=== PATIENT | female | born 1940 | race Caucasian/White ===

== ENCOUNTER 2019-09-25 11:04 | Inpatient (IN) | payer OTHER, MEDICAID ==
[~2019-09-25] VITALS: Ht 154.9 cm; Wt 89.8 kg
[2019-09-25 11:06] VITALS: BP_SYST 152
--- NOTE | 2019-09-25 11:17 | NUR ---
Patient to ER bed 06 to gown for evaluation. Side rails up.
[2019-09-25] MEDS ORDERED: NACL 0.9% 1,000 ML IV ONE (11:18)
--- NOTE | 2019-09-25 11:18 | NUR ---
Pt brought by ambulance, A&Ox2, pt presents to ER with weakness, N/V since today , pt hx of diabetes, skin pink and warm, afebrile , pt obedient to commands, no active vomiting noted now, cap refill <3, VSS.
--- NOTE | 2019-09-25 11:25 | NUR ---
Dr Callejas at bedside examining patient
[2019-09-25] MEDS ORDERED: cefTRIAXone 1 GM IVPB PREMIX 50 ML IV ONE (11:30)
[2019-09-25] MEDS ORDERED: NS 1000 ML IV.SOLN IV ONE (11:30)
[2019-09-25] MEDS ORDERED: ONDANSETRON HCL 4 MG/2 ML VIAL IVP ONE (11:30)
--- NOTE | 2019-09-25 11:49 | NUR ---
Pt pff the unit for CT
[2019-09-25 12:49] LABS: HEMATOCRIT 32.2 % (36-48); HEMOGLOBIN 10.3 g/dL (12.0-16.0); LYMPHOCYTES # (AUTO) 0.9 K/uL (1.0-5.5); LYMPHOCYTES % (AUTO) 6.8 % (20.5-51.5); MEAN CORPUSCULAR HEMOGLOBIN 30 pg (27-31); MEAN CORPUSCULAR HGB CONC 32 % (32-36); MEAN CORPUSCULAR VOLUME 94 fL (79.0-98.0); MONOCYTES # (AUTO) 0.2 K/uL (0.0-1.0); MONOCYTES % (AUTO) 1.6 % (1.7-9.3); NEUTROPHILS # (AUTO) 11.5 K/uL (1.8-7.7); NEUTROPHILS % (AUTO) 91.6 % (40.0-70.0); PLATELET COUNT (AUTO) 225 K/uL (130-430); RED BLOOD CELL COUNT(AUTO) 3.42 MIL/uL (4.2-6.2); RED CELL DISTRIBUTION WIDTH 22.4 % (9.0-15.0); WHITE BLOOD COUNT (AUTO) 12.6 K/uL (4.8-10.8)
[2019-09-25 12:56] LABS: PROTHROMBIN TIME 10.2 SECS (9.5-12.5)
[2019-09-25 12:57] LABS: ANION GAP 11 (5-15); CALCIUM 8.6 mg/dL (8.4-11.0); CHLORIDE 97 mmol/L (98-107); CREATININE 0.99 mg/dL (0.55-1.30); GLUCOSE 207 mg/dL (70-99); SODIUM SERUM 137 mmol/L (136-145); UREA NITROGEN, BLOOD 16 mg/dL (8-21)
[2019-09-25 13:03] LABS: ALANINE AMINOTRANSFERASE 20 U/L (12-78); ALBUMIN 3.9 g/dL (3.4-4.8); AMYLASE 37 U/L (0-100); ASPARTATE AMINOTRANSFERASE 18 U/L (10-37); LIPASE 67 U/L (73-393); TOTAL BILIRUBIN 0.4 mg/dL (0.0-1.0)
[2019-09-25 13:12] LABS: ALCOHOL, BLOOD < 3 mg/dL (<10)
[2019-09-25 13:35] LABS: CREATINE KINASE MB 8.5 ng/mL (0-3.6)
[2019-09-25] MEDS ORDERED: DOCU-144 PO (14:46)
[2019-09-25] MEDS ORDERED: MIRA25TA PO (14:46)
[2019-09-25] MEDS ORDERED: TRAM-350 PO (14:46)
[2019-09-25] MEDS ORDERED: OMEG-158 PO (14:46)
[2019-09-25] MEDS ORDERED: ASPI-1153 PO (14:46)
[2019-09-25] MEDS ORDERED: GLU850 PO ×2 (14:46)
[2019-09-25] MEDS ORDERED: SITA100T11 PO (14:46)
[2019-09-25] MEDS ORDERED: CHOL100053 PO (14:46)
[2019-09-25] MEDS ORDERED: GABA-531 PO (14:46)
[2019-09-25] MEDS ORDERED: LIP40 PO (14:46)
[2019-09-25] MEDS ORDERED: ALEN10TA7 PO (14:46)
--- NOTE | 2019-09-25 14:46 | NUR ---
Medication reconciliation completed with information provided by facility. Any prior medication reconciliation on file was reviewed and corrected.
--- NOTE | 2019-09-25 15:08 | NUR ---
Patient will be admitted to care of DR. VIEIRA. Admitted to [facility] unit. Will go to room 114B. Belongings list completed. Complete and up to date summary report printed. SBAR report to be given at bedside with opportunity for questions.
[2019-09-25 15:23] LABS: BARBITURATE, URINE NEGATIVE (NEG <=200); BENZODIAZEPINE, URINE NEGATIVE (NEG <=150); CANNABINOID, URINE NEGATIVE (NEG <=50); COCAINE, URINE NEGATIVE (NEG <=150); METHAMPHETAMINES SCREEN,URINE NEGATIVE (NEG <=500); OPIATE, URINE NEGATIVE (NEG <=100); PHENCYCLIDINE SCREEN,URINE NEGATIVE (NEG <=25); UR TRICYCLIC ANTIDEPRESSANTS NEGATIVE (NEG <=300); URINE AMPHETAMINE NEGATIVE (NEG <=500); URINE METHADONE NEGATIVE (NEG <=200); URINE OXYCODONE SCREEN NEGATIVE (NEG <=100); URINE PROPOXYPHENE SCREEN NEGATIVE (NEG <=300)
--- NOTE | 2019-09-25 15:28 | NUR ---
Admission Note Received patient from ER with diagnosis of Gastroenteritis. Oriented to room, call light, pain management and safety-side rails up x3, bed alarm on, call light within reach.
[2019-09-25 15:35] VITALS: BP_SYST 150
[2019-09-25 15:48] LABS: BILIRUBIN,URINE NEGATIVE (NEGATIVE); BLOOD, URINE 3+ (NEGATIVE); CLARITY/URINE CLEAR (CLEAR); COLOR,URINE YELLOW (YELLOW); GLUCOSE,URINE NEGATIVE (NEGATIVE); KETONES,URINE NEGATIVE (NEGATIVE); LEUKOCYTE ESTERASE ,URINE NEGATIVE (NEGATIVE); NITRITE, URINE POSITIVE (NEGATIVE); PH,URINE 6.5 (5.0-8.0); PROTEIN URINE NEGATIVE (NEGATIVE); UROBILINOGEN,URINE 0.2 (0.2-1.0)
[2019-09-25] MEDS ORDERED: ONDANSETRON HCL 4 MG/2 ML VIAL IVP PRN (17:00)
[2019-09-25 17:10] LABS: BACTERIA,URINE MODERATE /HPF (None Seen); RBC,URINE 20-50 /HPF (0-3); WBC,URINE 0-3 /HPF (0-3)
--- NOTE | 2019-09-25 17:19 | NUR ---
NAUSEA Pt c/o feeling like she is going to throw up-pt given Zofran as ordered. HOB elevated, emesis bucket provided, light turned down low to promote rest.
--- NOTE | 2019-09-25 17:23 | NUR ---
GI consult called: for Dr. Marichuy Singh , regarding gastritis, ordered by Dr. Calvillo, spoke with Aline.
[2019-09-25] MEDS: D5/0.45 NS 1,000 ML IV SCH (18:08)
--- NOTE | 2019-09-25 18:33 | NUR ---
CLOSING NOTE Pt resting quietly in bed with no s/s resp distress, no c/o pain or discomfort. No further c/o nausea, no vomiting. No IVF infusing well to LAC at ordered rate with no s/s infiltration to site. Side rails up x3, bed alarm on, room close to nursing station for safety. Call light within reach.
--- NOTE | 2019-09-25 19:30 | NUR ---
Pt is awake and oriented to her name only. Pt already removed her IV Angiocath intact, which was found lying on the floor. Pt is lying upside down in bed. Pt was moved from room 114B to room 104A to be closer to Nurses' Station for closer monitoring. Call light is with pt and bed alarm is on.
[2019-09-25 20:00] VITALS: BP_SYST 149
--- NOTE | 2019-09-25 21:00 | NUR ---
Pt is resting in bed and denies pain or discomfort. Fall and safety precautions are in place. Pt is refusing IV restart at this time. Will attempt again later.
--- NOTE | 2019-09-25 22:30 | NUR ---
IV was restarted in pt's RFA with Angiocath 22G after three attempts. IVF was resumed as ordered by MD. Call light is with pt and bed alarm is on.
[2019-09-26 00:04] VITALS: BP_SYST 148
--- NOTE | 2019-09-26 00:30 | NUR ---
Pt is sleeping without any distress noted. IVF is infusing well in RFA. Fall and safety precautions are in place.
--- NOTE | 2019-09-26 02:10 | NUR ---
Photo of nasal wound taken and placed in pt's chart.
[2019-09-26] MEDS: D5/0.45 NS 1,000 ML IV SCH ×3 (02:55→22:55)
--- NOTE | 2019-09-26 04:30 | NUR ---
Pt is sleeping comfortably in bed. IVF is infusing well in RFA. Fall and safety precautions are in place.
--- NOTE | 2019-09-26 06:26 | NUR ---
Pt is awake and resting comfortably in bed. IVF is infusing well in RFA. Fall and safety precautions are in place. Will endorse to day shift nurse.
[2019-09-26 08:00] VITALS: BP_SYST 135
--- NOTE | 2019-09-26 09:37 | NUR ---
Nutrition Update Samy Scale 14 noted. Pt admitted for gastroenteritis, dehydration, recent nasal Sx. Diet: clear liquid (2/3 Dinner) + NPO (2/4 Breakfast) -- 2 active, separate diet orders BMI: 37.4 kg/m2 RD to follow per nutrition care standards.
--- NOTE | 2019-09-26 10:51 | NUR ---
WOUND EVALUATION: Wound Consult received from Dr. Calvillo. Thank you, Dr. Calvillo, for the consult. Patient received in a Deshawn Bed with a mattress, awake, alert, and oriented. Patient is unable to turn independently. Samy Score is a 14. Past Medical History: CVA, atrophy, muscle wasting, Hypertension, Diabetes Mellitus, Osteoarthritis, Psychosis. Recent Labs: WBC 12.6, RBC 3.42, hemoglobin 10.3, hematocrit 32.2, chloride 97, glucose 207, total creatine kinase 210, PTT 25.2. Microbiology: Blood culture results 2 in progress. MRSA screen results in progress. Intrinsic factors that delay wound healing: Diabetes Mellitus. Extrinsic factors that delay wound healing: Decreased mobility. Wound Assessment: 1. Anterior Bridge of Nose: Surgical wound from skin cancer removal, present on admission. Wound bed has 100% black scab. No odor, no drainage. Cari-wound intact. Sutures present. Measures 1.3 cm x 1.7 cm. Recommend: Apply SurePrep to cari-wound. Cover with foam dressing, cut to size for protection. Perform site care daily, and as needed for dressing soiling or dislodgement. Also recommend: Encourage and reposition patient every 2 hours with pillow support and off-load pressure areas with pillows for pressure re-distribution. Offload, elevate and float bilateral heels with pillows. Perform skin care and monitor skin integrity Q shift. Use moisture barrier cream on buttocks and other moisture susceptible areas QID and as needed for soiling.
[2019-09-26 11:36] VITALS: BP_SYST 145
--- NOTE | 2019-09-26 13:52 | NUR ---
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
[2019-09-26 15:05] VITALS: BP_SYST 154
[2019-09-26 16:17] LABS: ALANINE AMINOTRANSFERASE 18 U/L (12-78); ANION GAP 8 (5-15); ASPARTATE AMINOTRANSFERASE 27 U/L (10-37); CALCIUM 7.4 mg/dL (8.4-11.0); CHLORIDE 103 mmol/L (98-107); CREATININE 0.94 mg/dL (0.55-1.30); GLUCOSE 193 mg/dL (70-99); POTASSIUM 3.6 mmol/L (3.5-5.1); SODIUM SERUM 137 mmol/L (136-145); TOTAL BILIRUBIN 0.3 mg/dL (0.0-1.0); UREA NITROGEN, BLOOD 9 mg/dL (8-21)
--- NOTE | 2019-09-26 19:20 | NUR ---
OPENING NOTES Patient resting, no signs of acute respiratory distress observed. IVF running, dressing c/d/i. Call light within reach, bed alarm on, bed at lowest position. Will continue to monitor.
--- NOTE | 2019-09-27 00:01 | NUR ---
Patient is resting, no signs of acute respiratory distress. Patient to be NPO. [facility] at bedside. Call light within reach. Will continue to monitor.
[2019-09-27 00:40] VITALS: BP_SYST 134
--- NOTE | 2019-09-27 02:11 | NUR ---
Patient is resting, no signs of distress observed. Will continue to monitor.
--- NOTE | 2019-09-27 03:57 | NUR ---
Patient is asleep, rise and fall of chest observed. Will continue to monitor
--- NOTE | 2019-09-27 07:01 | NUR ---
CLOSING NOTES Patient is resting, no signs of acute respiratory distress observed, no nausea and dressing still intact. IVF running, dressings c/d/i. Call light within reach, bed alarm on, bed at lowest position. All needs met throughout shift. Will endorse care to oncoming shift.
[2019-09-27 11:21] VITALS: BP_SYST 120
[2019-09-27] MEDS: D5/0.45 NS 1,000 ML IV SCH ×2 (12:00→18:55)
[2019-09-27] MEDS ORDERED: LEVOFLOXACIN 500 MG/D5W 100 ML IV SCH (12:00)
--- NOTE | 2019-09-27 14:50 | NUR ---
Nutrition Assessment (short note d/t high patient load) A - RD reviewed pertinent nutrition-related info via EMR (physician notes/nursing notes/labs/meds/nursing care trends/care activity). Admission Dx: Gastroenteritis, dehydration, recent nasal Sx PMH: CVA, muscle wasting and atrophy, osteoarthritis, HTN, DM, psychosis per physician notes Current Diet Order/Nutrition Support: Clear liquid x1 day Ht: 61", 5'1" Wt: 198#/90 kg IBW: 105#/48 kg %IBW: 188% Adj IBW (obesity): 128#/58 kg UBW: N/A %UBW: N/A BMI: 37.4 kg/m2 (obesity class II) Subjective Info: RD Notification received for N/V greater than 3 days HVAC JOURNEYMAN. Nutrition Consult received for nose surgical wound. Pt was seen resting in bed -- unable to verbalize d/t confusion/disorientation. No family present. Bedscale wt taken: 195#. Per EMR, PO intake records indicate 17% average x3 meals. Pt is not meeting optimal nutritional needs. ESTIMATED NUTRITIONAL NEEDS CALORIES/DAY: 8074-2939 kcal/day (25-30 kcal/kg Adj IBW for geriatric maintenance) PROTEIN/DAY: 58-70 gm/day (1-1.2 gm/kg Adj IBW for geriatric maintenance) FLUID/DAY: 2.7-3.2 L/day (30-35 ml/kg CBW for dehydration) D - Inadequate nutritional intakes related to possible lack of appetite associated w/ cognitive limitations as evidenced by Hx of psychosis and poor PO intake records. I - Recommend continuing clear liquid diet -- comes standard w/ Ensure Clear TID (720 kcal/day, 24 gm protein/day) M - Monitor advancement of diet, appetite, and PO intakes w/ goal of pt meeting at least 75% of estimated nutritional needs, labs trending WNL, normal GI function, and skin integrity/wt maintenance E - High risk; F/U within 3 days
--- NOTE | 2019-09-27 14:55 | NUR ---
Dietitian Recommendations * Recommend continuing clear liquid diet -- comes standard w/ Ensure Clear TID (720 kcal/day, 24 gm protein/day) LP, RD Please refer to Nutrition Assessment for details.
[2019-09-27 15:04] VITALS: BP_SYST 157
--- NOTE | 2019-09-27 18:40 | NUR ---
ASHLEY 139 APPLIED SCD OBTAINED CONSENT FOR MIDLINE PLACEMENT
--- NOTE | 2019-09-27 19:10 | NUR ---
CHANGE OF SHIFT: pt. sleeping when received, covered up with blanket. on fall risk precautions. no distress. no IV access. call light at bedside.
[2019-09-27 20:45] VITALS: BP_SYST 165
--- NOTE | 2019-09-27 21:00 | NUR ---
NOTES: pt. awakened and pulled up in bed, pt. spanisk speaking, little costa rican. No IV access, endorsed for placement of midline cath tomorrow, order given to the supervisor shearing and consent by pt. daughter. pt. verbalizing she has not eaten for 3 days, on clear liquid and assisted by SERVICE OBSERVER CHIEF to eat/drink . pt. needs attended.
--- NOTE | 2019-09-27 21:15 | NUR ---
NOTES: pt. called and wants to dangle at the edge of the bed, informed not to get out of bed and verbalized understanding, call light within reach. informed pt. will try to insert IV. pt. room close to nurse station.
--- NOTE | 2019-09-27 22:31 | NUR ---
NOTES: repositioned in bed but after few minutes, got out of bed , and sat up in chair. pt. verbalizing she is hungry, given jello, drank Ensure and juice but wants real food. reminded to use call light if she wants to go back to bed.
--- NOTE | 2019-09-27 23:13 | NUR ---
NOTES: pt. back to sitting at the edge of the bed, still insisting on getting some food, getting angry and asking why she cannot have food, tried to explain in azeri. more ensure gvien , shes afraid her blood sugar will drop since she is diabetic. pt. reassured.
--- NOTE | 2019-09-28 00:20 | NUR ---
NOTES: Farhan Velazco. here and interpreted by Darby (credit control clerk). informed about n IV access and IV antibiotic was not given ,ordered to change to po and will call Dr. Mir this am if able to advance diet if no procedure will be done. pt. helped to go back to bed, repositioned. pt. saying she is weak. pt. given chicken broth and milk and water.
[2019-09-28 01:19] VITALS: BP_SYST 104
--- NOTE | 2019-09-28 02:44 | NUR ---
NOTES: pt. sleeping quietly when checked. on fall risk precautions. condition observed.
[2019-09-28] MEDS: D5/0.45 NS 1,000 ML IV SCH ×3 (04:55→23:25)
--- NOTE | 2019-09-28 05:30 | NUR ---
NOTES: complete am care done/monica care, incontinent of urine. pt. able to help turn to sides. needs attended. fall risk precautions.
--- NOTE | 2019-09-28 06:43 | NUR ---
CLOSING NOTES; condition unchanged, schedule for midline placement. maintained bed rest. on fall risk precautions. for further care and assistance. call light within reach.
[2019-09-28 07:45] VITALS: BP_SYST 180
--- NOTE | 2019-09-28 07:57 | NUR ---
OPENING NOTES, RECEIVED PT IN BED, PT IS AAOX3, DENIES PAIN, NO SOB, NO RESP DISTRESS. NO FEVER. NO IV ACCESS, PT WILL HAVE MID LINE INSERTED THIS AM. CALL LIGHT IN REACH. BED IN LOW POSITION. ENCOURAGED PT TO CALL FOR ASSIST AND PAIN MEDS. AWARE THAT WE ARE WAITING FOR G.I. DOCTOR TO SEE IF WE CAN CHANGE DIET.
--- NOTE | 2019-09-28 08:13 | NUR ---
DR AMEZQUITA HERE AND SEEN PATIENT, NEW ORDER GIVEN AND ORDERS CARRIED OUT.
--- NOTE | 2019-09-28 08:26 | NUR ---
CONSULTATION PAGED REASON FOR CONSULTATION:GALSTONES WAS CONSULT CALLED?Y PERSON WHO WAS NOTIFIED:VERNON CONSULTING PHYSICIAN:VERNON ANIMAL HANDLER SPECIALTY:SURGEON ANIMAL HANDLER PHONE NUMBER:[phone] ORDERING PHYSICIAN:MATEO NAZARIO
--- NOTE | 2019-09-28 08:27 | NUR ---
CONSULTATION PAGED/CALLED Reason for Consultation: [] GALLSTONE Person Who was Notified: [] JANICE Consulting Physician: [] DR Yordy ASCENCIO Microbiological Analyst Specialty: [] GEN SURGEON Ordering Physician: [] DR VIEIRA
[2019-09-28] MEDS: LEVOFLOXACIN 500 MG TABLET PO SCH (09:02)
--- NOTE | 2019-09-28 11:20 | NUR ---
pt's family at bedside, updated them on poc.
[2019-09-28 12:45] VITALS: BP_SYST 157
--- NOTE | 2019-09-28 15:54 | NUR ---
PT IN BED, SLEEPING. DR ASCENCIO WAS HERE EARLIER AND MD SEEN AND SPOKE WITH PT.
[2019-09-28 16:00] VITALS: BP_SYST 133
--- NOTE | 2019-09-28 16:19 | NUR ---
PT NOW AWAKE, SITTING ON EDGE OF BED, NO C/O PAIN. NO SOB.
--- NOTE | 2019-09-28 17:00 | NUR ---
pt's frand daughter at bedside, updated with pt's status and plan of care.
--- NOTE | 2019-09-28 18:36 | NUR ---
closing notes, pt has been stable the whole shift. no c/o pain, no sob. pt still has no iv access. picc nurse will come by montse for midline insertion. family updated with pt with pt's status and plan of care. pt will have mrcp in am. needs to be npo after midnight. will endorse to night nurse.
--- NOTE | 2019-09-28 19:55 | NUR ---
PM SHIFT ASSESSMENT Received patient sitting up in bed, aox3, israeli speaking, able to understand some armenian, able to make needs known, denies any pain or discomfort at this time, vital signs stable, no sob noted, no iv line, picc line ordered, nurse to come tonight for picc placement, plan of care discussed with patient, verbalized understanding, compliant, oriented to use call light for nurse assistance, fall and safety measures in place, will closely monitor.
[2019-09-28 20:00] VITALS: BP_SYST 151
--- NOTE | 2019-09-28 21:30 | NUR ---
RN ROUNDS Patient awake, resting quietly in bed, assisted to bedside commode earlier, steady gait noted, placed back in bed, safety measures in place, call light within reach, will monitor.
--- NOTE | 2019-09-28 22:49 | NUR ---
PICC Picc line nurse at bedside, chest x ray called for picc line verification.
--- NOTE | 2019-09-29 00:30 | NUR ---
RN ROUNDS Patient resting quietly in bed, denies any pain or discomfort at this time, vitals stable, PICC line placement verified by chest xray, started IVF @ 100 ml/hr, dressing changed to nose, foam dressing applied, cut dressing to fit nose. Patient tolerated well, fall and safety measures in place, bed alarm on, will closely monitor.
[2019-09-29 00:44] VITALS: BP_SYST 150
--- NOTE | 2019-09-29 02:09 | NUR ---
RN ROUNDS Patient asleep, breathing is even and unlabored, remains on room air, IVF continues to infuse, fall and safety measures in place, bed alarm on, will closely monitor.
--- NOTE | 2019-09-29 04:16 | NUR ---
RN ROUNDS Patient asleep, breathing is even and unlabored, IVF continues to infuse, fall and safety measures in place, bed alarm on, will closely monitor.
--- NOTE | 2019-09-29 06:20 | NUR ---
RN ROUNDS Patient continues to sleep, breathing is even and unlabored, incontinence care provided, patient repositioned for comfort, PICC line intact and patent, IVF continues to infuse, fall and safety measures maintained, call light remains within reach, will continue to monitor until report given to am nurse.
--- NOTE | 2019-09-29 08:00 | NUR ---
OPENING NOTES, RECEIVED PT IN BED, PT IS AAOX2-3, DENIES PAIN, NO SOB, NO RESP DISTRESS. NO FEVER. NO IV ACCESS, PT WILL HAVE MID LINE INSERTED THIS AM. CALL LIGHT IN REACH. BED IN LOW POSITION. ENCOURAGED PT TO CALL FOR ASSIST AND PAIN MEDS. AWARE THAT WE ARE WAITING FOR G.I. DOCTOR TO SEE IF WE CAN CHANGE
[2019-09-29 08:06] VITALS: BP_SYST 158
--- NOTE | 2019-09-29 10:00 | NUR ---
PT CLEANED AND ASSISTED TO ABENA TONY.
--- NOTE | 2019-09-29 12:13 | NUR ---
Discharge Planning: DCP faxed to Ellen Xiao (f [phone] p [phone]) DCP to follow up. Addendum: 09/29/19 at 1445 by Sarah DAILY DCP spoke to Jenni Xiao (f [phone] p [phone]) patient accepted to room 15, DCP made nurse aware.
[2019-09-29 12:20] VITALS: BP_SYST 150
[2019-09-29] MEDS: D5/0.45 NS 1,000 ML IV SCH ×2 (12:20→21:00)
[2019-09-29] MEDS: LEVOFLOXACIN 500 MG TABLET PO SCH (12:20)
--- NOTE | 2019-09-29 15:00 | NUR ---
PT ASSISTED TO BEDSIDE COMMODE. PT IS MOD TO MAX ASSISTS.
[2019-09-29 16:22] VITALS: BP_SYST 156
[2019-09-29 19:00] VITALS: BP_SYST 156
--- NOTE | 2019-09-29 19:15 | NUR ---
change of shift.pt.presents quiescent affect;calm,resting.pt.language barrier extant;pt's primary language;mauritanian;i am to attend to pt.mauritanian.pt.presents picc line:location rt.bicept;intact;patent iv fluids infusing.pt.utilizing the bsc.general status stable.respiratory status stable@room air.call light/telephone w/in reach of the pt.
--- NOTE | 2019-09-29 19:28 | NUR ---
CLOSING NOTES, PT HAS BEEN STABLE, NO C/O PAIN, NO SOB. PT INCONTINENT, HAD MRCP, VITALS WNL, NO FEVER. ENDORSED TO NIGHT NURSE. SONIA ORTEGA MADE AWARE OF THE NEW/LAT ORDER OF DR VIEIRA TO DC PT TO SNF.
[2019-09-29 20:00] VITALS: BP_SYST 156
--- NOTE | 2019-09-29 20:00 | NUR ---
pt.assessed;v/s assessed;values w/in normal limits.no c/o pain,nausea.pt.lucid/oriented.pt.conveyed responses per moldovan. i have apprised the pt.that snacks/beverages are available w/in the shift.no requests posited@this hour.i have attended to the bsc;measured/cleaned.picc line intact;patent.iv fluids infusing.pt.stated she presents tetlin:status:lt.ear>rt.ear.i have placed nsg/pt.alert signs@the hob;picc line/tetlin alerts.pt.capable to reposition self.general status stable.respiratory status stsbel;troy;bore@room air:02-sat%=98%.call 'light/telephone placed w/in reach of the pt. Addendum: 09/30/19 at 0105 by Guanako Thacker RN day shift nsg;aamir assigned to the pt.09/29/19 telephoned the unit.aamir apprised me that had ordered transfer pt.to snf;return to residence. paged re;pt's transfer.
--- NOTE | 2019-09-29 21:00 | NUR ---
returned the page.i apprised that i had telephoned the pt's residence:[facility] [place]:i had conferred w/rosa foote who stated that should follow protocol for transfer:an ordered for dcp/case mgx;to arrange the transfer. ordered hold the transfer until wednesday;09/30/19:and dcp/case mgx consult per transfer protocol.
--- NOTE | 2019-09-29 22:00 | NUR ---
pt.assessed.pt.presents quiescent affect;calm,resting.pt.had requested eye blinders to shield eyes from room light.i was able to locate eye blinders. i have attended to the bsc:measured /cleaned.placed w/in access of the pt.picc line intact;patent;i have changed the iv fluids bag. general status stable.respiratory status stable;unlabored.no requests posited @ this hour.pt.capable to reposition self.call light/telephone w/in reach of the pt.
[2019-09-30] VITALS: BP_SYST 145
--- NOTE | 2019-09-30 | NUR ---
pt.assessed.v/s assessed;values w/in normal limits.no c/o pain/nausea.no requests posited@this hour.i have attended to the bsc.measured/emptied.iv access intact;patent;iv fluids infusing.pt.capable to reposition self.general status stable.respiratory status stable.call light/telephone placed w/in reach of the pt.
--- NOTE | 2019-09-30 02:00 | NUR ---
pt.assessed.pt.presents quiescent affect;calm,somnolent.picc line intact;patent iv fluids infusing.general status stable. respiratory status stable;unlabored. i have inspected the bsc;clean.pt.capable to reposition self.call light/telephone w/in reach of the pt.
--- NOTE | 2019-09-30 04:00 | NUR ---
pt.assessed.pt.presents quiescent affect;calm,somnolent.i have inspected the bsc;attended:measured/cleaned.placed w/in access of the pt. picc line intact;patent;iv fluids infusing,general status stable.respiratory status stable;unlabored.pt.capable to reposition self.call light/telephone w/in reach of the pt.
--- NOTE | 2019-09-30 06:12 | NUR ---
pt.assessed .pt.presents quiescent affect;calm,somnolent.picc line intact;patent;iv fluids infusing.i have inspected the bsc; i have attend to th bsc;measured/cleaned.general status stable.respiratory status stable;unlabored.no c/o pain,nausea.no requests posited@this hour.pt.capable to reposition self.call light/telephone w/in reach of the pt.
[2019-09-30] MEDS: D5/0.45 NS 1,000 ML IV SCH (06:18)
[2019-09-30] MEDS ORDERED: guaiFENesin 200 MG/CODEINE 20 MG/ 10 ML UDC PO PRN (06:45)
[2019-09-30 07:10] LABS: BASOPHILS % (AUTO) 0.3 % (0.0-2.0); EOSINOPHILS # (AUTO) 0.3 K/uL (0.0-0.4); EOSINOPHILS % (AUTO) 3.2 % (0.0-4.0); HEMOGLOBIN 9.9 g/dL (12.0-16.0); LYMPHOCYTES # (AUTO) 1.7 K/uL (1.0-5.5); LYMPHOCYTES % (AUTO) 19.8 % (20.5-51.5); MEAN CORPUSCULAR HEMOGLOBIN 31 pg (27-31); MEAN CORPUSCULAR HGB CONC 33 % (32-36); MEAN CORPUSCULAR VOLUME 93 fL (79.0-98.0); MONOCYTES # (AUTO) 0.4 K/uL (0.0-1.0); MONOCYTES % (AUTO) 4.7 % (1.7-9.3); NEUTROPHILS # (AUTO) 6.3 K/uL (1.8-7.7); PLATELET COUNT (AUTO) 226 K/uL (130-430); RED BLOOD CELL COUNT(AUTO) 3.23 MIL/uL (4.2-6.2); RED CELL DISTRIBUTION WIDTH 22.3 % (9.0-15.0); WHITE BLOOD COUNT (AUTO) 8.8 K/uL (4.8-10.8)
[2019-09-30 07:25] LABS: ALANINE AMINOTRANSFERASE 20 U/L (12-78); ALBUMIN 3.2 g/dL (3.4-4.8); ANION GAP 5 (5-15); ASPARTATE AMINOTRANSFERASE 19 U/L (10-37); CALCIUM 8.4 mg/dL (8.4-11.0); CHLORIDE 99 mmol/L (98-107); CREATININE 0.95 mg/dL (0.55-1.30); GLUCOSE 213 mg/dL (70-99); POTASSIUM 3.9 mmol/L (3.5-5.1); SODIUM SERUM 132 mmol/L (136-145); TOTAL BILIRUBIN 0.7 mg/dL (0.0-1.0); UREA NITROGEN, BLOOD 11 mg/dL (8-21)
[2019-09-30 07:54] VITALS: BP_SYST 147
[2019-09-30] MEDS: LEVOFLOXACIN 500 MG TABLET PO SCH (09:17)
--- NOTE | 2019-09-30 12:19 | NUR ---
Case mgt: Spoke w/Swapnil at [facility]--he said bed 15C is assigned and they can take pt today--call report to [phone]--[facility] BLS arranged for 3pm milk pickup driver-nurse Susy portillo. SNF packet will be taken to nursing station. ROHAN SCOTT
[2019-09-30 12:44] VITALS: BP_SYST 156
--- NOTE | 2019-09-30 13:20 | NUR ---
FAMILY NOTIFIED Called and spoke with the patient's daughter Nory Melara and informed her that the pt will go back to [facility] to room 15C.
[2019-09-30 14:04] VITALS: BP_SYST 152
--- NOTE | 2019-09-30 14:30 | NUR ---
Note Pt was dressed in orange gown and sheet. All belongings packed and kept at end of bed. Pt's IVF's were stopped at this time. Pt's LADONNA PICC was dc'd and site benign. No bleeding/redness/drainage/swelling noted at this time. Pt was reassured in Malawian that her daughter was called and notified. No SOB/resp distress or pain/discomfort noted at this time. Call light within reach.
--- NOTE | 2019-09-30 14:45 | NUR ---
Note EMT on the floor and report was given. Pt's discharge packet was given to EMT to give [place] for continuation of care. Pt stable. Pt off the floor via gurney with all her belongings. Pt stable.
== END 2019-09-30 14:45 | DRG 445 ==
LOC: SED 11:04 → SMU 15:04 → OBSVTOIN 09-26 12:51
PROVIDERS: ADMIT Internal Medicine; ATTEND Internal Medicine
PROC: 02HV33Z Insertion of Infusion Device into Superior Vena Cava, Percutaneous Approach (ICD-10-PCS; principal; 2019-09-28)
PROC: B548ZZA Ultrasonography of Superior Vena Cava, Guidance (ICD-10-PCS; 2019-09-28)
DX: K80.20 Calculus of gallbladder without cholecystitis without obstruction (principal); N39.0 Urinary tract infection, site not specified; K52.9 Noninfective gastroenteritis and colitis, unspecified; E86.0 Dehydration; E11.9 Type 2 diabetes mellitus without complications; E66.01 Morbid (severe) obesity due to excess calories; I10 Essential (primary) hypertension; M19.90 Unspecified osteoarthritis, unspecified site; Z86.73 Personal history of transient ischemic attack (TIA), and cerebral infarction without residual deficits; Z79.899 Other long term (current) drug therapy; Z79.82 Long term (current) use of aspirin; Z68.37 Body mass index [BMI] 37.0-37.9, adult
CPT/HCPCS: 36415; 70450-TC; 71045; 74181; 76700-TC; 78226; 80053; 80307; 81000-TC; 82150-TC; 82550-TC; 82553-TC; 82962; 83605; 83690-TC; 83880; 84484; 85025; 85610-TC; 85730-TC; 87040-TC; 87081; 93005; 96365; 96375; 99285; A9537; C1751; G0378; G0481; G0482; J0696; J1956; J2405

== ENCOUNTER 2023-05-18 12:22 | Inpatient (IN) | payer OTHER, MEDICAID ==
[~2023-05-18] VITALS: Ht 157.5 cm; Wt 81.2 kg
[~2023-05-18 12:22] MED LIST: ALEN10TA25 PO; CRAN450T9 PO; DOCU-144 PO; GABA-531 PO; GLU850 PO; GLUC1KIT IJ; GLUC1VIA14; LOSA-415 PO; MULT-1089 PO; OMEG-158 PO; SITA100T11 PO; SSREG SUBCUT; TRAM50TA2 PO
[2023-05-18 12:31] VITALS: RESP 20
[2023-05-18 13:39] LABS: BILIRUBIN,URINE NEGATIVE (NEGATIVE); CLARITY/URINE Slightly Cloudy (CLEAR); COLOR,URINE Dark yellow (YELLOW); GLUCOSE,URINE NEGATIVE (NEGATIVE); KETONES,URINE NEGATIVE (NEGATIVE); LEUKOCYTE ESTERASE ,URINE 2+ (NEGATIVE); NITRITE, URINE NEGATIVE (NEGATIVE); PROTEIN URINE 1+ (NEGATIVE)
[2023-05-18 13:39] LABS: BASOPHILS % (AUTO) 0.1 % (0.0-2.0); EOSINOPHILS # (AUTO) 0.1 K/uL (0.0-0.4); EOSINOPHILS % (AUTO) 0.8 % (0.0-4.0); HEMATOCRIT 35.2 % (36-48); HEMOGLOBIN 11.1 g/dL (12.0-16.0); LYMPHOCYTES # (AUTO) 1.4 K/uL (1.0-5.5); LYMPHOCYTES % (AUTO) 10.8 % (20.5-51.5); MEAN CORPUSCULAR HEMOGLOBIN 28 pg (27-31); MEAN CORPUSCULAR HGB CONC 32 % (32-36); MEAN CORPUSCULAR VOLUME 87 fL (79.0-98.0); MONOCYTES # (AUTO) 0.9 K/uL (0.0-1.0); MONOCYTES % (AUTO) 7.1 % (1.7-9.3); NEUTROPHILS # (AUTO) 10.4 K/uL (1.8-7.7); NEUTROPHILS % (AUTO) 81.2 % (40.0-70.0); PLATELET COUNT (AUTO) 250 K/uL (130-430); RED BLOOD CELL COUNT(AUTO) 4.03 MIL/uL (4.2-6.2); RED CELL DISTRIBUTION WIDTH 15.6 % (9.0-15.0); WHITE BLOOD COUNT (AUTO) 12.8 K/uL (4.8-10.8)
[2023-05-18 13:49] LABS: ANION GAP 13 (5-15); CALCIUM 8.3 mg/dL (8.4-11.0); CARBON DIOXIDE 22 mmol/L (23-29); CHLORIDE 98 mmol/L (98-107); CREATININE 1.72 mg/dL (0.55-1.30); GLUCOSE 279 mg/dL (74-106); POTASSIUM 4.2 mmol/L (3.5-5.1); SODIUM SERUM 133 mmol/L (136-145); UREA NITROGEN, BLOOD 63 mg/dL (8-21)
[2023-05-18 13:54] LABS: BLOOD, URINE TRACE (NEGATIVE)
[2023-05-18 14:01] LABS: ALANINE AMINOTRANSFERASE 32 U/L (12-78); ALBUMIN 1.9 g/dL (3.4-4.8); ASPARTATE AMINOTRANSFERASE 14 U/L (10-37); LIPASE 69 U/L (73-393); TOTAL BILIRUBIN 0.9 mg/dL (0.0-1.0); TOTAL PROTEIN, SERUM 7.1 g/dL (6.4-8.3)
[2023-05-18 14:13] LABS: PROTHROMBIN TIME 10.2 SECS (9.5-12.5)
[2023-05-18 14:15] LABS: ACETONE, SERUM NEGATIVE (NEGATIVE)
[2023-05-18 14:17] LABS: BACTERIA,URINE MANY /HPF (None Seen); WBC,URINE 50-80 /HPF (0-3)
[2023-05-18 14:18] LABS: COARSE GRANULAR CASTS,URINE 0-5 /LPF (None Seen)
[2023-05-18 14:36] LABS: AMYLASE 18 U/L (0-100)
[2023-05-18] MEDS ORDERED: PIPERACILLIN/TAZO 3.375 GM in NS 50 ML IV ONE (15:45)
[2023-05-18] MEDS ORDERED: PIPERACILLIN/TAZOBACTAM 3.375 GM/VIAL (ZOSYN) IV ONE (16:03)
[2023-05-18] MEDS ORDERED: D5/0.45 NS 1,000 ML IV SCH (17:15)
[2023-05-18] MEDS ORDERED: SITA50TA3 PO (17:21)
[2023-05-18] MEDS ORDERED: OMEG100037 PO (17:21)
[2023-05-18] MEDS ORDERED: ACET325T53 PO (17:21)
[2023-05-18] MEDS ORDERED: VITD2000 PO (17:21)
[2023-05-18] MEDS ORDERED: FERR-31 PO (17:21)
[2023-05-18] MEDS ORDERED: CYAN100010 PO (17:21)
[2023-05-18] MEDS ORDERED: METF-518 PO (17:21)
[2023-05-18 18:35] VITALS: BP_SYST 110; PULSE 106; RESP 20; TEMP 98.1; O2SAT 99
[2023-05-18 20:00] VITALS: BP_SYST 107; PULSE 105; RESP 18; TEMP 97.6; O2SAT 95
[2023-05-18] MEDS: D5/0.45 NS 1,000 ML IV SCH (20:00)
[2023-05-18 21:17] VITALS: O2SAT 95
[2023-05-18] MEDS ORDERED: PIPERACILLIN/TAZO 3.375/DEX-IS 50 ML IV SCH (22:00)
[2023-05-18] MEDS: PIPERACILLIN/TAZO 3.375/DEX-IS 50 ML IV SCH (22:00)
[2023-05-19] VITALS: BP_SYST 148; PULSE 100; RESP 19; TEMP 98.1; O2SAT 96
[2023-05-19] MEDS ORDERED: ONDANSETRON HCL 4 MG/2 ML VIAL IVP PRN (01:30)
[2023-05-19] MEDS: MORPHINE 2 MG/ML INJ. SYRINGE IVP PRN (01:46)
[2023-05-19] MEDS: PIPERACILLIN/TAZO 3.375/DEX-IS 50 ML IV SCH ×3 (05:59→22:00)
[2023-05-19 07:08] LABS: BASOPHILS % (AUTO) 0.1 % (0.0-2.0); EOSINOPHILS # (AUTO) 0.1 K/uL (0.0-0.4); HEMATOCRIT 34.3 % (36-48); LYMPHOCYTES # (AUTO) 1.3 K/uL (1.0-5.5); LYMPHOCYTES % (AUTO) 9.4 % (20.5-51.5); MEAN CORPUSCULAR HEMOGLOBIN 28 pg (27-31); MEAN CORPUSCULAR HGB CONC 32 % (32-36); MEAN CORPUSCULAR VOLUME 87 fL (79.0-98.0); MONOCYTES # (AUTO) 0.9 K/uL (0.0-1.0); MONOCYTES % (AUTO) 6.5 % (1.7-9.3); NEUTROPHILS # (AUTO) 11.4 K/uL (1.8-7.7); PLATELET COUNT (AUTO) 254 K/uL (130-430); RED BLOOD CELL COUNT(AUTO) 3.95 MIL/uL (4.2-6.2); RED CELL DISTRIBUTION WIDTH 15.7 % (9.0-15.0); WHITE BLOOD COUNT (AUTO) 13.8 K/uL (4.8-10.8)
[2023-05-19 07:29] LABS: ALANINE AMINOTRANSFERASE 28 U/L (12-78); ALBUMIN 1.9 g/dL (3.4-4.8); ANION GAP 12 (5-15); ASPARTATE AMINOTRANSFERASE 17 U/L (10-37); CALCIUM 8.3 mg/dL (8.4-11.0); CARBON DIOXIDE 23 mmol/L (23-29); CHLORIDE 99 mmol/L (98-107); CHOLESTEROL 158 mg/dL (<200); CREATININE 1.56 mg/dL (0.55-1.30); GLUCOSE 277 mg/dL (74-106); HDL CHOLESTEROL 26 mg/dL (>55); POTASSIUM 4.4 mmol/L (3.5-5.1); SODIUM SERUM 134 mmol/L (136-145); THYROID STIMULATING HORMONE 5.25 uIu/mL (0.34-4.82); TOTAL PROTEIN, SERUM 7.2 g/dL (6.4-8.3); TRIGLYCERIDES 196 mg/dL (30-150); UREA NITROGEN, BLOOD 57 mg/dL (8-21)
[2023-05-19 08:00] VITALS: BP_SYST 107; PULSE 93; RESP 18; TEMP 98.8; O2SAT 98
[2023-05-19 12:00] VITALS: BP_SYST 96; PULSE 94; RESP 20; TEMP 96.5; O2SAT 94
[2023-05-19] MEDS: D5/0.45 NS 1,000 ML IV SCH (14:00)
[2023-05-19 16:00] VITALS: BP_SYST 118; PULSE 68; RESP 22; TEMP 97.8; O2SAT 97
[2023-05-19 16:11] VITALS: O2SAT 95
[2023-05-19] MEDS ORDERED: fentaNYL CITRATE/PF 100 MCG/2 ML AMP ONE (18:56)
[2023-05-19] MEDS ORDERED: LIDOCAINE 1% 10 MG/ML, 20 ML MDV ONE (18:56)
[2023-05-19] MEDS ORDERED: ETOMIDATE 20 MG/ 10 ML VIAL (AMIDATE) ONE (18:56)
[2023-05-19] MEDS ORDERED: MIDAZOLAM HCL/PF 2 MG/2 ML SYRINGE ONE (18:56)
[2023-05-19] MEDS ORDERED: ONDANSETRON HCL 4 MG/2 ML VIAL ONE (18:56)
[2023-05-19] MEDS ORDERED: METOCLOPRAMIDE HCL 10 MG/2 ML VIAL ONE (18:56)
[2023-05-19] MEDS ORDERED: NS IRRIG SOLN 1000 ML IR ONE ×2 (18:56)
[2023-05-19] MEDS ORDERED: BUPIVACAINE /PF 0.25% 30 ML VIAL INJ ONE (18:56)
[2023-05-19] MEDS ORDERED: SEVOFLURANE 15 MIN GAS INH ONE (18:56)
[2023-05-19] MEDS ORDERED: DEXAMETHASONE SOD PHOSPHATE 4 MG/ML VIAL ONE (18:56)
[2023-05-19] MEDS ORDERED: ROCURONIUM BROMIDE 10 MG/ML (ZEMURON) ONE (18:56)
[2023-05-19] MEDS ORDERED: WATER FOR IRRIGATION,STERILE 1,000 ML IRRIG.SOLN IR ONE (18:56)
[2023-05-19] MEDS ORDERED: ACETAMINOPHEN I.V. 1000 MG 100 ML IV ONE (19:38)
[2023-05-19] MEDS: GABAPENTIN 300 MG CAPSULE PO SCH (21:00)
[2023-05-19] MEDS: FERROUS SULFATE 325 MG TABLET.DR PO SCH (21:00)
[2023-05-19] MEDS ORDERED: MORPHINE 4 MG INJ. 4 MG/ML VIAL IVP PRN (22:00)
[2023-05-19 22:42] LABS: ALANINE AMINOTRANSFERASE 35 U/L (12-78); ALBUMIN 1.8 g/dL (3.4-4.8); ANION GAP 13 (5-15); ASPARTATE AMINOTRANSFERASE 54 U/L (10-37); CALCIUM 7.7 mg/dL (8.4-11.0); CARBON DIOXIDE 22 mmol/L (23-29); CHLORIDE 103 mmol/L (98-107); CREATININE 1.56 mg/dL (0.55-1.30); GLUCOSE 250 mg/dL (74-106); POTASSIUM 4.7 mmol/L (3.5-5.1); SODIUM SERUM 138 mmol/L (136-145); TOTAL BILIRUBIN 1.1 mg/dL (0.0-1.0); TOTAL PROTEIN, SERUM 6.8 g/dL (6.4-8.3); UREA NITROGEN, BLOOD 53 mg/dL (8-21)
[2023-05-19] MEDS ORDERED: INSULIN REGULAR, HUMAN 100 UNITS/ML, 3 ML VIAL (humuLIN R) ONE (23:07)
[2023-05-19] MEDS ORDERED: INSULIN REGULAR, HUMAN 100 UNITS/ML, 3 ML VIAL SUBCUT ONE (23:15)
[2023-05-20] VITALS (17 sets, daily range): BP systolic 103–130; PULSE 8–109; RESP 18–22; TEMP 98–98.9; O2SAT 92–100
[2023-05-20 05:34] LABS: BASOPHILS # (AUTO) 0.1 K/uL (0.0-0.2); BASOPHILS % (AUTO) 0.4 % (0.0-2.0); EOSINOPHILS % (AUTO) 0.1 % (0.0-4.0); HEMATOCRIT 28.6 % (36-48); LYMPHOCYTES # (AUTO) 0.7 K/uL (1.0-5.5); LYMPHOCYTES % (AUTO) 5.7 % (20.5-51.5); MEAN CORPUSCULAR HEMOGLOBIN 28 pg (27-31); MEAN CORPUSCULAR HGB CONC 32 % (32-36); MEAN CORPUSCULAR VOLUME 87 fL (79.0-98.0); MONOCYTES # (AUTO) 0.5 K/uL (0.0-1.0); MONOCYTES % (AUTO) 4.2 % (1.7-9.3); NEUTROPHILS # (AUTO) 11.6 K/uL (1.8-7.7); NEUTROPHILS % (AUTO) 89.6 % (40.0-70.0); PLATELET COUNT (AUTO) 244 K/uL (130-430); RED BLOOD CELL COUNT(AUTO) 3.28 MIL/uL (4.2-6.2); RED CELL DISTRIBUTION WIDTH 15.8 % (9.0-15.0); WHITE BLOOD COUNT (AUTO) 12.9 K/uL (4.8-10.8)
[2023-05-20] MEDS ORDERED: ALEN70TA84 PO (06:20)
[2023-05-20] MEDS: PIPERACILLIN/TAZO 3.375/DEX-IS 50 ML IV SCH ×3 (06:48→21:09)
[2023-05-20 08:16] LABS: ANION GAP 14 (5-15); CARBON DIOXIDE 20 mmol/L (23-29); CHLORIDE 105 mmol/L (98-107); GLUCOSE 315 mg/dL (74-106); POTASSIUM 5.2 mmol/L (3.5-5.1); SODIUM SERUM 139 mmol/L (136-145); UREA NITROGEN, BLOOD 54 mg/dL (8-21)
[2023-05-20 08:21] LABS: ALANINE AMINOTRANSFERASE 33 U/L (12-78); ALBUMIN 1.7 g/dL (3.4-4.8); ASPARTATE AMINOTRANSFERASE 48 U/L (10-37); TOTAL PROTEIN, SERUM 5.3 g/dL (6.4-8.3)
[2023-05-20] MEDS: LOSARTAN POTASSIUM 50 MG TABLET (COZAAR) PO SCH (08:25)
[2023-05-20] MEDS: CYANOCOBALAMIN (VITAMIN B-12) 1,000 MCG TABLET PO SCH (08:26)
[2023-05-20] MEDS: FERROUS SULFATE 325 MG TABLET.DR PO SCH ×2 (08:26→21:09)
[2023-05-20] MEDS: CHOLECALCIFEROL (VITAMIN D3) 2,000 UNIT TABLET PO SCH (08:26)
[2023-05-20] MEDS ORDERED: NON-FORMULARY MEDICATION (Losartan Potassium (Cozaar) 100 MG) PO SCH (09:00)
[2023-05-20] MEDS: MORPHINE 2 MG/ML INJ. SYRINGE IVP PRN ×2 (09:20→15:47)
[2023-05-20] MEDS: D5/0.45 NS 1,000 ML IV SCH (10:00)
[2023-05-20] MEDS: INSULIN REGULAR, HUMAN 100 UNITS/ML, 3 ML VIAL (humuLIN R) SUBCUT PRN ×3 (11:34→21:16)
[2023-05-20] MEDS: GABAPENTIN 300 MG CAPSULE PO SCH (21:09)
[2023-05-21 00:53] VITALS: BP_SYST 126; PULSE 99; RESP 18; TEMP 97.1; O2SAT 94
[2023-05-21] MEDS: D5/0.45 NS 1,000 ML IV SCH (02:32)
[2023-05-21] MEDS: HYDROcodone/ACETAMIN 5-325 MG TAB (NORCO/ VICODIN) PO PRN ×3 (04:57→20:13)
[2023-05-21] MEDS: PIPERACILLIN/TAZO 3.375/DEX-IS 50 ML IV SCH ×3 (05:25→20:59)
[2023-05-21 05:29] LABS: BASOPHILS % (AUTO) 0.1 % (0.0-2.0); EOSINOPHILS # (AUTO) 0.1 K/uL (0.0-0.4); EOSINOPHILS % (AUTO) 0.5 % (0.0-4.0); HEMATOCRIT 25.1 % (36-48); HEMOGLOBIN 7.9 g/dL (12.0-16.0); LYMPHOCYTES # (AUTO) 1.4 K/uL (1.0-5.5); LYMPHOCYTES % (AUTO) 11.7 % (20.5-51.5); MEAN CORPUSCULAR HEMOGLOBIN 28 pg (27-31); MEAN CORPUSCULAR HGB CONC 32 % (32-36); MEAN CORPUSCULAR VOLUME 88 fL (79.0-98.0); MONOCYTES # (AUTO) 0.6 K/uL (0.0-1.0); NEUTROPHILS # (AUTO) 9.8 K/uL (1.8-7.7); NEUTROPHILS % (AUTO) 82.7 % (40.0-70.0); PLATELET COUNT (AUTO) 250 K/uL (130-430); RED BLOOD CELL COUNT(AUTO) 2.86 MIL/uL (4.2-6.2); RED CELL DISTRIBUTION WIDTH 15.8 % (9.0-15.0); WHITE BLOOD COUNT (AUTO) 11.8 K/uL (4.8-10.8)
[2023-05-21 06:15] LABS: ANION GAP 12 (5-15); CALCIUM 7.1 mg/dL (8.4-11.0); CARBON DIOXIDE 21 mmol/L (23-29); CHLORIDE 102 mmol/L (98-107); CREATININE 1.67 mg/dL (0.55-1.30); GLUCOSE 385 mg/dL (74-106); POTASSIUM 4.2 mmol/L (3.5-5.1); SODIUM SERUM 135 mmol/L (136-145); UREA NITROGEN, BLOOD 46 mg/dL (8-21)
[2023-05-21] MEDS: INSULIN REGULAR, HUMAN 100 UNITS/ML, 3 ML VIAL (humuLIN R) SUBCUT PRN ×4 (06:42→20:19)
[2023-05-21 08:38] VITALS: BP_SYST 107; PULSE 78; RESP 20; TEMP 99; O2SAT 96
[2023-05-21] MEDS: FERROUS SULFATE 325 MG TABLET.DR PO SCH ×2 (09:43→20:12)
[2023-05-21] MEDS: CHOLECALCIFEROL (VITAMIN D3) 2,000 UNIT TABLET PO SCH (09:43)
[2023-05-21] MEDS: LOSARTAN POTASSIUM 50 MG TABLET (COZAAR) PO SCH (09:44)
[2023-05-21] MEDS: CYANOCOBALAMIN (VITAMIN B-12) 1,000 MCG TABLET PO SCH (09:44)
[2023-05-21 11:41] VITALS: BP_SYST 100; PULSE 92; RESP 15; TEMP 98.5; O2SAT 96
[2023-05-21 17:29] VITALS: BP_SYST 140; PULSE 68; RESP 15; TEMP 98.4; O2SAT 98
[2023-05-21 19:30] VITALS: O2SAT 95
[2023-05-21 20:00] VITALS: BP_SYST 93; PULSE 90; RESP 18; TEMP 98; O2SAT 95
[2023-05-21] MEDS: GABAPENTIN 300 MG CAPSULE PO SCH (20:12)
[2023-05-22 01:32] VITALS: BP_SYST 120; PULSE 91; RESP 20; TEMP 98.1; O2SAT 96
[2023-05-22] MEDS: D5/0.45 NS 1,000 ML IV SCH ×2 (04:02→22:00)
[2023-05-22] MEDS ORDERED: ALENDRONATE SODIUM 35 MG TABLET PO SCH ×2 (06:00→09:00)
[2023-05-22] MEDS: PIPERACILLIN/TAZO 3.375/DEX-IS 50 ML IV SCH ×3 (06:04→21:59)
[2023-05-22] MEDS: INSULIN REGULAR, HUMAN 100 UNITS/ML, 3 ML VIAL (humuLIN R) SUBCUT PRN ×4 (06:49→21:47)
[2023-05-22 07:16] LABS: ANION GAP 12 (5-15); CALCIUM 7.8 mg/dL (8.4-11.0); CARBON DIOXIDE 20 mmol/L (23-29); CHLORIDE 97 mmol/L (98-107); CREATININE 1.68 mg/dL (0.55-1.30); GLUCOSE 295 mg/dL (74-106); POTASSIUM 3.9 mmol/L (3.5-5.1); SODIUM SERUM 129 mmol/L (136-145); UREA NITROGEN, BLOOD 45 mg/dL (8-21)
[2023-05-22 07:18] LABS: BASOPHILS % (AUTO) 0.2 % (0.0-2.0); EOSINOPHILS # (AUTO) 0.1 K/uL (0.0-0.4); EOSINOPHILS % (AUTO) 1.1 % (0.0-4.0); HEMATOCRIT 27.4 % (36-48); HEMOGLOBIN 8.6 g/dL (12.0-16.0); LYMPHOCYTES # (AUTO) 1.8 K/uL (1.0-5.5); LYMPHOCYTES % (AUTO) 14.5 % (20.5-51.5); MEAN CORPUSCULAR HEMOGLOBIN 28 pg (27-31); MEAN CORPUSCULAR HGB CONC 31 % (32-36); MEAN CORPUSCULAR VOLUME 88 fL (79.0-98.0); MONOCYTES # (AUTO) 0.6 K/uL (0.0-1.0); MONOCYTES % (AUTO) 4.3 % (1.7-9.3); NEUTROPHILS # (AUTO) 10.2 K/uL (1.8-7.7); NEUTROPHILS % (AUTO) 79.9 % (40.0-70.0); PLATELET COUNT (AUTO) 294 K/uL (130-430); RED BLOOD CELL COUNT(AUTO) 3.11 MIL/uL (4.2-6.2); RED CELL DISTRIBUTION WIDTH 15.4 % (9.0-15.0); WHITE BLOOD COUNT (AUTO) 12.8 K/uL (4.8-10.8)
[2023-05-22 08:00] VITALS: O2SAT 97
[2023-05-22] MEDS: LOSARTAN POTASSIUM 50 MG TABLET (COZAAR) PO SCH (09:00)
[2023-05-22 09:14] LABS: ALBUMIN 1.6 g/dL (3.4-4.8); BILIRUBIN,DIRECT 0.5 mg/dL (0.0-0.3); TOTAL BILIRUBIN 0.6 mg/dL (0.0-1.0); TOTAL PROTEIN, SERUM 6.4 g/dL (6.4-8.3)
[2023-05-22 09:18] VITALS: BP_SYST 114; PULSE 92; RESP 17; TEMP 97.8; O2SAT 96
[2023-05-22] MEDS: FERROUS SULFATE 325 MG TABLET.DR PO SCH ×2 (09:31→21:45)
[2023-05-22] MEDS: CHOLECALCIFEROL (VITAMIN D3) 2,000 UNIT TABLET PO SCH (09:31)
[2023-05-22] MEDS: CYANOCOBALAMIN (VITAMIN B-12) 1,000 MCG TABLET PO SCH (09:33)
[2023-05-22 11:30] VITALS: BP_SYST 112; PULSE 94; RESP 21; TEMP 98.2; O2SAT 96
[2023-05-22] MEDS: HYDROcodone/ACETAMIN 5-325 MG TAB (NORCO/ VICODIN) PO PRN (11:59)
[2023-05-22] MEDS: MORPHINE 2 MG/ML INJ. SYRINGE IVP PRN ×2 (13:33→23:02)
[2023-05-22 17:30] VITALS: BP_SYST 108; PULSE 100; RESP 20; TEMP 99.2; O2SAT 95
[2023-05-22] MEDS: GABAPENTIN 300 MG CAPSULE PO SCH (21:45)
[2023-05-23] VITALS: BP_SYST 115; PULSE 92; RESP 19; TEMP 98.4; O2SAT 96
[2023-05-23] MEDS ORDERED: cefTRIAXone 1 GM VIAL ONE (05:21)
[2023-05-23] MEDS: cefTRIAXone 1 GM in D5W 50 ML IV SCH (05:28)
[2023-05-23] MEDS: D5/0.45 NS 1,000 ML IV SCH (05:35)
[2023-05-23] MEDS: INSULIN REGULAR, HUMAN 100 UNITS/ML, 3 ML VIAL (humuLIN R) SUBCUT PRN ×4 (06:28→22:08)
[2023-05-23 08:00] VITALS: BP_SYST 118; PULSE 85; RESP 18; TEMP 98.4; O2SAT 96
[2023-05-23 08:29] LABS: ANION GAP 10 (5-15); CALCIUM 8.2 mg/dL (8.4-11.0); CARBON DIOXIDE 22 mmol/L (23-29); CHLORIDE 104 mmol/L (98-107); CREATININE 1.32 mg/dL (0.55-1.30); GLUCOSE 204 mg/dL (74-106); POTASSIUM 4.5 mmol/L (3.5-5.1); SODIUM SERUM 136 mmol/L (136-145); UREA NITROGEN, BLOOD 37 mg/dL (8-21)
[2023-05-23 08:49] LABS: BASOPHILS % (AUTO) 0.3 % (0.0-2.0); EOSINOPHILS # (AUTO) 0.2 K/uL (0.0-0.4); EOSINOPHILS % (AUTO) 1.6 % (0.0-4.0); HEMATOCRIT 26.7 % (36-48); HEMOGLOBIN 8.3 g/dL (12.0-16.0); LYMPHOCYTES # (AUTO) 1.4 K/uL (1.0-5.5); LYMPHOCYTES % (AUTO) 10.5 % (20.5-51.5); MEAN CORPUSCULAR HEMOGLOBIN 27 pg (27-31); MEAN CORPUSCULAR HGB CONC 31 % (32-36); MEAN CORPUSCULAR VOLUME 88 fL (79.0-98.0); MONOCYTES # (AUTO) 0.6 K/uL (0.0-1.0); MONOCYTES % (AUTO) 4.6 % (1.7-9.3); NEUTROPHILS # (AUTO) 10.8 K/uL (1.8-7.7); PLATELET COUNT (AUTO) 313 K/uL (130-430); RED BLOOD CELL COUNT(AUTO) 3.05 MIL/uL (4.2-6.2); RED CELL DISTRIBUTION WIDTH 15.6 % (9.0-15.0)
[2023-05-23] MEDS: CYANOCOBALAMIN (VITAMIN B-12) 1,000 MCG TABLET PO SCH (09:00)
[2023-05-23] MEDS: CHOLECALCIFEROL (VITAMIN D3) 2,000 UNIT TABLET PO SCH (09:00)
[2023-05-23] MEDS: FERROUS SULFATE 325 MG TABLET.DR PO SCH ×2 (11:40→22:09)
[2023-05-23] MEDS: LOSARTAN POTASSIUM 50 MG TABLET (COZAAR) PO SCH (11:54)
[2023-05-23 17:30] VITALS: BP_SYST 145; PULSE 94; RESP 20; TEMP 98; O2SAT 96
[2023-05-23] MEDS: GABAPENTIN 300 MG CAPSULE PO SCH (22:09)
[2023-05-24 02:01] VITALS: BP_SYST 158; PULSE 89; RESP 19; TEMP 97.6; O2SAT 96
[2023-05-24] MEDS: cefTRIAXone 1 GM in D5W 50 ML IV SCH (03:38)
[2023-05-24] MEDS: D5/0.45 NS 1,000 ML IV SCH (05:42)
[2023-05-24] MEDS: INSULIN REGULAR, HUMAN 100 UNITS/ML, 3 ML VIAL (humuLIN R) SUBCUT PRN ×3 (06:43→18:14)
[2023-05-24 08:00] VITALS: BP_SYST 156; PULSE 87; RESP 18; TEMP 97; O2SAT 97
[2023-05-24 08:17] LABS: BASOPHILS % (AUTO) 0.1 % (0.0-2.0); EOSINOPHILS # (AUTO) 0.2 K/uL (0.0-0.4); EOSINOPHILS % (AUTO) 1.3 % (0.0-4.0); HEMATOCRIT 28.3 % (36-48); HEMOGLOBIN 8.8 g/dL (12.0-16.0); LYMPHOCYTES # (AUTO) 1.4 K/uL (1.0-5.5); LYMPHOCYTES % (AUTO) 11.5 % (20.5-51.5); MEAN CORPUSCULAR HEMOGLOBIN 27 pg (27-31); MEAN CORPUSCULAR HGB CONC 31 % (32-36); MEAN CORPUSCULAR VOLUME 87 fL (79.0-98.0); MONOCYTES # (AUTO) 0.6 K/uL (0.0-1.0); MONOCYTES % (AUTO) 4.7 % (1.7-9.3); NEUTROPHILS # (AUTO) 10.2 K/uL (1.8-7.7); NEUTROPHILS % (AUTO) 82.4 % (40.0-70.0); PLATELET COUNT (AUTO) 374 K/uL (130-430); RED BLOOD CELL COUNT(AUTO) 3.25 MIL/uL (4.2-6.2); RED CELL DISTRIBUTION WIDTH 15.5 % (9.0-15.0); WHITE BLOOD COUNT (AUTO) 12.4 K/uL (4.8-10.8)
[2023-05-24 08:47] LABS: ALANINE AMINOTRANSFERASE 14 U/L (12-78); ALBUMIN 1.6 g/dL (3.4-4.8); ANION GAP 10 (5-15); ASPARTATE AMINOTRANSFERASE 14 U/L (10-37); CALCIUM 8.6 mg/dL (8.4-11.0); CARBON DIOXIDE 23 mmol/L (23-29); CHLORIDE 105 mmol/L (98-107); CREATININE 0.94 mg/dL (0.55-1.30); GLUCOSE 182 mg/dL (74-106); POTASSIUM 4.4 mmol/L (3.5-5.1); SODIUM SERUM 138 mmol/L (136-145); TOTAL BILIRUBIN 0.4 mg/dL (0.0-1.0); TOTAL PROTEIN, SERUM 6.5 g/dL (6.4-8.3); UREA NITROGEN, BLOOD 22 mg/dL (8-21)
[2023-05-24] MEDS: FERROUS SULFATE 325 MG TABLET.DR PO SCH ×2 (10:07→21:56)
[2023-05-24] MEDS: LOSARTAN POTASSIUM 50 MG TABLET (COZAAR) PO SCH (10:07)
[2023-05-24] MEDS: CYANOCOBALAMIN (VITAMIN B-12) 1,000 MCG TABLET PO SCH (10:08)
[2023-05-24] MEDS: CHOLECALCIFEROL (VITAMIN D3) 2,000 UNIT TABLET PO SCH (10:08)
[2023-05-24 12:00] VITALS: BP_SYST 125; PULSE 88; RESP 15; TEMP 97; O2SAT 93
[2023-05-24 16:00] VITALS: BP_SYST 158; PULSE 86; RESP 18; TEMP 98.4; O2SAT 100
[2023-05-24 19:00] VITALS: O2SAT 97
[2023-05-24 20:00] VITALS: BP_SYST 153; PULSE 96; RESP 18; TEMP 97.1; O2SAT 97
[2023-05-24] MEDS: GABAPENTIN 300 MG CAPSULE PO SCH (21:55)
[2023-05-25] MEDS: cefTRIAXone 1 GM in D5W 50 ML IV SCH (04:00)
[2023-05-25 08:00] VITALS: BP_SYST 135; PULSE 87; RESP 20; TEMP 97.9; O2SAT 97
[2023-05-25] MEDS: FERROUS SULFATE 325 MG TABLET.DR PO SCH (09:32)
[2023-05-25] MEDS: LOSARTAN POTASSIUM 50 MG TABLET (COZAAR) PO SCH (09:32)
[2023-05-25] MEDS: CYANOCOBALAMIN (VITAMIN B-12) 1,000 MCG TABLET PO SCH (09:33)
[2023-05-25] MEDS: CHOLECALCIFEROL (VITAMIN D3) 2,000 UNIT TABLET PO SCH (09:33)
[2023-05-25] MEDS: D5/0.45 NS 1,000 ML IV SCH (10:00)
[2023-05-25] MEDS: INSULIN REGULAR, HUMAN 100 UNITS/ML, 3 ML VIAL (humuLIN R) SUBCUT PRN (12:04)
[2023-05-25 12:41] VITALS: BP_SYST 143; PULSE 91; RESP 19; TEMP 96.9; O2SAT 96
[2023-05-25 16:26] VITALS: BP_SYST 139; PULSE 89; RESP 20; TEMP 97.4; O2SAT 97
[2023-05-25 17:20] VITALS: BP_SYST 130; PULSE 90; RESP 18; TEMP 98; O2SAT 97
== END 2023-05-25 18:45 | DRG 853 ==
LOC: SED 12:22 → STU 17:06 → SMU 18:01 → SIC 05-19 23:33 → SMU 05-20 19:30 → STU 05-20 20:55 → SMU 05-22 18:35
PROVIDERS: ADMIT Internal Medicine; ATTEND Internal Medicine
PROC: 0FJ44ZZ Inspection of Gallbladder, Percutaneous Endoscopic Approach (ICD-10-PCS; 2023-05-19)
PROC: 0DNU0ZZ Release Omentum, Open Approach (ICD-10-PCS; 2023-05-19)
PROC: 0FT40ZZ Resection of Gallbladder, Open Approach (ICD-10-PCS; principal; 2023-05-19 18:56)
DX: A41.9 Sepsis, unspecified organism (principal); E43 Unspecified severe protein-calorie malnutrition; K65.3 Choleperitonitis; N17.0 Acute kidney failure with tubular necrosis; N39.0 Urinary tract infection, site not specified; K80.12 Calculus of gallbladder with acute and chronic cholecystitis without obstruction; I10 Essential (primary) hypertension; E78.5 Hyperlipidemia, unspecified; E11.40 Type 2 diabetes mellitus with diabetic neuropathy, unspecified; M81.0 Age-related osteoporosis without current pathological fracture; F20.9 Schizophrenia, unspecified; E66.9 Obesity, unspecified; Z86.73 Personal history of transient ischemic attack (TIA), and cerebral infarction without residual deficits; Z53.31 Laparoscopic surgical procedure converted to open procedure; Z68.32 Body mass index [BMI] 32.0-32.9, adult
CPT/HCPCS: 36415; 76376; 78226; 80048; 80053; 80061; 80076; 81000; 82009; 82150; 82948; 82962; 83605; 83690; 84443; 84484; 85025; 85610-TC; 85730-TC; 87040; 87081; 87086; 88304; 96361; 96365; 97110-GP; 97530-GP; 99285; A9537; C1727; G0378; J0131; J0696; J1100; J1815; J2001; J2270; J2405; J2543; J2765; J3010; J3465; J3490; J7060

== ENCOUNTER 2023-06-24 12:39 | Inpatient (IN) | payer OTHER, MEDICAID ==
[~2023-06-24] VITALS: Ht 157.5 cm; Wt 77.1 kg
[~2023-06-24 12:39] MED LIST changes: +ACET325T53 PO; -ALEN10TA25 PO; +ALEN70TA84 PO; +CYAN100010 PO; -DOCU-144 PO; +FERR-31 PO; -GLU850 PO; -GLUC1KIT IJ; -GLUC1VIA14; +METF-518 PO; -MULT-1089 PO; +OMEG100037 PO; -SITA100T11 PO; +SITA50TA3 PO; -TRAM50TA2 PO; +VITD2000 PO
[2023-06-24 12:50] VITALS: BP_SYST 98; PULSE 82; RESP 18; TEMP 98; O2SAT 98
[2023-06-24 14:02] LABS: BASOPHILS % (AUTO) 0.2 % (0.0-2.0); EOSINOPHILS # (AUTO) 0.2 K/uL (0.0-0.4); EOSINOPHILS % (AUTO) 2.5 % (0.0-4.0); HEMATOCRIT 32.1 % (36-48); HEMOGLOBIN 10.1 g/dL (12.0-16.0); LYMPHOCYTES # (AUTO) 1.9 K/uL (1.0-5.5); LYMPHOCYTES % (AUTO) 21.1 % (20.5-51.5); MEAN CORPUSCULAR HEMOGLOBIN 27 pg (27-31); MEAN CORPUSCULAR HGB CONC 31 % (32-36); MEAN CORPUSCULAR VOLUME 87 fL (79.0-98.0); MONOCYTES # (AUTO) 0.4 K/uL (0.0-1.0); MONOCYTES % (AUTO) 4.4 % (1.7-9.3); NEUTROPHILS # (AUTO) 6.6 K/uL (1.8-7.7); NEUTROPHILS % (AUTO) 71.8 % (40.0-70.0); PLATELET COUNT (AUTO) 214 K/uL (130-430); RED BLOOD CELL COUNT(AUTO) 3.69 MIL/uL (4.2-6.2); RED CELL DISTRIBUTION WIDTH 15.7 % (9.0-15.0); WHITE BLOOD COUNT (AUTO) 9.1 K/uL (4.8-10.8)
[2023-06-24 14:17] LABS: ANION GAP 11 (5-15); CALCIUM 9.5 mg/dL (8.4-11.0); CARBON DIOXIDE 24 mmol/L (23-29); CHLORIDE 99 mmol/L (98-107); CREATININE 1.06 mg/dL (0.55-1.30); GLUCOSE 152 mg/dL (74-106); POTASSIUM 4.2 mmol/L (3.5-5.1); SODIUM SERUM 134 mmol/L (136-145); UREA NITROGEN, BLOOD 34 mg/dL (8-21)
[2023-06-24 14:20] LABS: PROTHROMBIN TIME 10.3 SECS (9.5-12.5)
[2023-06-24 14:21] LABS: ALANINE AMINOTRANSFERASE 19 U/L (12-78); ALBUMIN 2.8 g/dL (3.4-4.8); ASPARTATE AMINOTRANSFERASE 17 U/L (10-37); TOTAL BILIRUBIN 0.3 mg/dL (0.0-1.0); TOTAL PROTEIN, SERUM 7.4 g/dL (6.4-8.3)
[2023-06-24 15:10] LABS: ACETONE, SERUM NEGATIVE (NEGATIVE)
[2023-06-24 15:21] LABS: AMYLASE 32 U/L (0-100); LIPASE 31 U/L (16-77)
[2023-06-24] MEDS: D5/0.45 NS 1,000 ML IV SCH (17:15)
[2023-06-24] MEDS ORDERED: MULT-1193 PO (17:27)
[2023-06-24] MEDS ORDERED: ASCO500T20 PO (17:27)
[2023-06-24] MEDS ORDERED: LEVO25TA2 PO (17:27)
[2023-06-24] MEDS ORDERED: ZINC220T3 PO (17:27)
[2023-06-24] MEDS ORDERED: BACITRACIN 1 GM OINT TP ONE (18:32)
[2023-06-24 20:10] VITALS: BP_SYST 119; PULSE 95; RESP 18; TEMP 97.8
[2023-06-24 20:36] LABS: BILIRUBIN,URINE NEGATIVE (NEGATIVE); COLOR,URINE YELLOW (YELLOW); GLUCOSE,URINE NEGATIVE (NEGATIVE); KETONES,URINE NEGATIVE (NEGATIVE); LEUKOCYTE ESTERASE ,URINE 3+ (NEGATIVE); NITRITE, URINE NEGATIVE (NEGATIVE); PH,URINE 5.5 (5.0-8.0); PROTEIN URINE NEGATIVE (NEGATIVE); UROBILINOGEN,URINE 0.2 (0.2-1.0)
[2023-06-24 20:39] LABS: BLOOD, URINE TRACE (NEGATIVE); CLARITY/URINE HAZY (CLEAR)
[2023-06-24 21:05] LABS: BACTERIA,URINE MANY /HPF (None Seen); WBC,URINE 20-50 /HPF (0-3)
[2023-06-25] VITALS: BP_SYST 135; PULSE 93; RESP 17; TEMP 97.4; O2SAT 95
[2023-06-25 05:33] LABS: BASOPHILS % (AUTO) 0.3 % (0.0-2.0); EOSINOPHILS # (AUTO) 0.3 K/uL (0.0-0.4); EOSINOPHILS % (AUTO) 2.8 % (0.0-4.0); HEMATOCRIT 30.9 % (36-48); LYMPHOCYTES % (AUTO) 21.7 % (20.5-51.5); MEAN CORPUSCULAR HEMOGLOBIN 28 pg (27-31); MEAN CORPUSCULAR HGB CONC 32 % (32-36); MEAN CORPUSCULAR VOLUME 86 fL (79.0-98.0); MONOCYTES # (AUTO) 0.4 K/uL (0.0-1.0); MONOCYTES % (AUTO) 4.7 % (1.7-9.3); NEUTROPHILS # (AUTO) 6.4 K/uL (1.8-7.7); NEUTROPHILS % (AUTO) 70.5 % (40.0-70.0); PLATELET COUNT (AUTO) 204 K/uL (130-430); RED BLOOD CELL COUNT(AUTO) 3.61 MIL/uL (4.2-6.2); RED CELL DISTRIBUTION WIDTH 15.8 % (9.0-15.0); WHITE BLOOD COUNT (AUTO) 9.1 K/uL (4.8-10.8)
[2023-06-25 06:12] LABS: ALANINE AMINOTRANSFERASE 19 U/L (12-78); ALBUMIN 2.7 g/dL (3.4-4.8); ANION GAP 11 (5-15); ASPARTATE AMINOTRANSFERASE 15 U/L (10-37); CALCIUM 9.2 mg/dL (8.4-11.0); CARBON DIOXIDE 23 mmol/L (23-29); CHLORIDE 99 mmol/L (98-107); CREATININE 0.96 mg/dL (0.55-1.30); GLUCOSE 157 mg/dL (74-106); SODIUM SERUM 133 mmol/L (136-145); TOTAL BILIRUBIN 0.3 mg/dL (0.0-1.0); TOTAL PROTEIN, SERUM 7.1 g/dL (6.4-8.3); UREA NITROGEN, BLOOD 27 mg/dL (8-21)
[2023-06-25 07:30] VITALS: BP_SYST 126; PULSE 86; RESP 18; TEMP 97.6; O2SAT 100
[2023-06-25 12:52] VITALS: BP_SYST 130; PULSE 83; RESP 18; TEMP 97.2; O2SAT 98
[2023-06-25] MEDS: D5/0.45 NS 1,000 ML IV SCH (13:40)
[2023-06-25 16:42] VITALS: BP_SYST 133; PULSE 89; RESP 17; TEMP 97.3; O2SAT 97
[2023-06-25 20:30] VITALS: BP_SYST 139; PULSE 84; RESP 18; TEMP 98.4; O2SAT 96
[2023-06-26 00:29] VITALS: BP_SYST 136; PULSE 83; RESP 20; TEMP 97.8; O2SAT 97
[2023-06-26 08:15] VITALS: BP_SYST 106; PULSE 101; RESP 15; TEMP 98.4; O2SAT 100
[2023-06-26] MEDS: D5/0.45 NS 1,000 ML IV SCH (09:15)
[2023-06-26] MEDS: levoFLOXacin 250 MG TABLET PO SCH (10:00)
[2023-06-26] MEDS ORDERED: ALENDRONATE SODIUM 70 MG TABLET (FOSAMAX) PO SCH (10:15)
[2023-06-26 11:26] VITALS: BP_SYST 140; PULSE 86; RESP 15; TEMP 96.7; O2SAT 93
[2023-06-26 15:25] VITALS: BP_SYST 143; PULSE 83; RESP 16; TEMP 97.7; O2SAT 97
[2023-06-26 20:00] VITALS: BP_SYST 144; PULSE 84; RESP 18; TEMP 98.3; O2SAT 96
[2023-06-26] MEDS: GABAPENTIN 300 MG CAPSULE PO SCH (22:08)
[2023-06-26] MEDS: FERROUS SULFATE 325 MG TABLET.DR PO SCH (22:08)
[2023-06-27] VITALS (7 sets, daily range): BP systolic 94–128; PULSE 73–104; RESP 16–20; TEMP 97.3–99; O2SAT 96–99
[2023-06-27] MEDS: LEVOTHYROXINE SODIUM 0.025 MG TABLET PO SCH (06:12)
[2023-06-27] MEDS: D5/0.45 NS 1,000 ML IV SCH (06:12)
[2023-06-27] MEDS: CYANOCOBALAMIN (VITAMIN B-12) 1,000 MCG TABLET PO SCH (08:53)
[2023-06-27] MEDS: FERROUS SULFATE 325 MG TABLET.DR PO SCH ×2 (08:54→21:40)
[2023-06-27] MEDS: LOSARTAN POTASSIUM 50 MG TABLET (COZAAR) PO SCH (08:54)
[2023-06-27] MEDS: MULTIVITAMINS TAB 1 TABLET PO SCH (08:55)
[2023-06-27] MEDS: OMEGA-3/DHA/EPA/FISH OIL 1 GM CAPSULE PO SCH (08:55)
[2023-06-27] MEDS: CHOLECALCIFEROL (VITAMIN D3) 2,000 UNIT TABLET PO SCH (08:55)
[2023-06-27] MEDS: levoFLOXacin 250 MG TABLET PO SCH (08:55)
[2023-06-27] MEDS: ASCORBIC ACID 500 MG TABLET PO SCH (08:56)
[2023-06-27] MEDS ORDERED: OMEGA PO SCH (09:00)
[2023-06-27] MEDS ORDERED: FISH OIL PO SCH (09:00)
[2023-06-27] MEDS ORDERED: EPA PO SCH (09:00)
[2023-06-27] MEDS ORDERED: DHA PO SCH (09:00)
[2023-06-27] MEDS ORDERED: NON-FORMULARY MEDICATION (Multivitamin with Minerals (Hair, Skin and Nails) 1 EACH) PO SCH (09:00)
[2023-06-27] MEDS ORDERED: NON-FORMULARY MEDICATION (Losartan Potassium (Cozaar) 100 MG) PO SCH (09:00)
[2023-06-27 11:27] LABS: BASOPHILS % (AUTO) 0.3 % (0.0-2.0); EOSINOPHILS # (AUTO) 0.2 K/uL (0.0-0.4); EOSINOPHILS % (AUTO) 2.5 % (0.0-4.0); HEMATOCRIT 32.6 % (36-48); HEMOGLOBIN 10.4 g/dL (12.0-16.0); LYMPHOCYTES # (AUTO) 1.9 K/uL (1.0-5.5); LYMPHOCYTES % (AUTO) 21.7 % (20.5-51.5); MEAN CORPUSCULAR HEMOGLOBIN 28 pg (27-31); MEAN CORPUSCULAR HGB CONC 32 % (32-36); MEAN CORPUSCULAR VOLUME 87 fL (79.0-98.0); MONOCYTES # (AUTO) 0.3 K/uL (0.0-1.0); MONOCYTES % (AUTO) 3.2 % (1.7-9.3); NEUTROPHILS # (AUTO) 6.3 K/uL (1.8-7.7); NEUTROPHILS % (AUTO) 72.3 % (40.0-70.0); PLATELET COUNT (AUTO) 227 K/uL (130-430); RED BLOOD CELL COUNT(AUTO) 3.76 MIL/uL (4.2-6.2); RED CELL DISTRIBUTION WIDTH 15.4 % (9.0-15.0); WHITE BLOOD COUNT (AUTO) 8.8 K/uL (4.8-10.8)
[2023-06-27 11:39] LABS: ANION GAP 11 (5-15); CARBON DIOXIDE 21 mmol/L (23-29); CHLORIDE 102 mmol/L (98-107); CREATININE 1.04 mg/dL (0.55-1.30); GLUCOSE 250 mg/dL (74-106); POTASSIUM 3.9 mmol/L (3.5-5.1); SODIUM SERUM 134 mmol/L (136-145); UREA NITROGEN, BLOOD 15 mg/dL (8-21)
[2023-06-27] MEDS: GABAPENTIN 300 MG CAPSULE PO SCH (21:40)
[2023-06-28 00:15] VITALS: BP_SYST 121; PULSE 89; RESP 18; TEMP 97.7; O2SAT 96
[2023-06-28 05:47] LABS: BASOPHILS % (AUTO) 0.2 % (0.0-2.0); EOSINOPHILS # (AUTO) 0.3 K/uL (0.0-0.4); EOSINOPHILS % (AUTO) 3.6 % (0.0-4.0); HEMATOCRIT 29.3 % (36-48); HEMOGLOBIN 9.4 g/dL (12.0-16.0); LYMPHOCYTES % (AUTO) 28.1 % (20.5-51.5); MEAN CORPUSCULAR HEMOGLOBIN 28 pg (27-31); MEAN CORPUSCULAR HGB CONC 32 % (32-36); MEAN CORPUSCULAR VOLUME 86 fL (79.0-98.0); MONOCYTES # (AUTO) 0.3 K/uL (0.0-1.0); MONOCYTES % (AUTO) 4.2 % (1.7-9.3); NEUTROPHILS # (AUTO) 4.6 K/uL (1.8-7.7); NEUTROPHILS % (AUTO) 63.9 % (40.0-70.0); PLATELET COUNT (AUTO) 219 K/uL (130-430); RED BLOOD CELL COUNT(AUTO) 3.41 MIL/uL (4.2-6.2); RED CELL DISTRIBUTION WIDTH 15.3 % (9.0-15.0); WHITE BLOOD COUNT (AUTO) 7.2 K/uL (4.8-10.8)
[2023-06-28] MEDS: D5/0.45 NS 1,000 ML IV SCH ×2 (05:50→21:51)
[2023-06-28 06:13] LABS: ANION GAP 8 (5-15); CALCIUM 8.7 mg/dL (8.4-11.0); CARBON DIOXIDE 26 mmol/L (23-29); CHLORIDE 103 mmol/L (98-107); CREATININE 0.92 mg/dL (0.55-1.30); GLUCOSE 167 mg/dL (74-106); POTASSIUM 3.8 mmol/L (3.5-5.1); SODIUM SERUM 137 mmol/L (136-145); UREA NITROGEN, BLOOD 13 mg/dL (8-21)
[2023-06-28] MEDS: LEVOTHYROXINE SODIUM 0.025 MG TABLET PO SCH (06:53)
[2023-06-28 07:00] VITALS: BP_SYST 118; PULSE 72; RESP 16; TEMP 96.1; O2SAT 97
[2023-06-28 09:00] VITALS: BP_SYST 118; PULSE 72; RESP 16; TEMP 96.1; O2SAT 97
[2023-06-28] MEDS: FERROUS SULFATE 325 MG TABLET.DR PO SCH ×2 (11:09→21:50)
[2023-06-28] MEDS: MULTIVITAMINS TAB 1 TABLET PO SCH (11:09)
[2023-06-28] MEDS: OMEGA-3/DHA/EPA/FISH OIL 1 GM CAPSULE PO SCH (11:09)
[2023-06-28] MEDS: levoFLOXacin 250 MG TABLET PO SCH (11:09)
[2023-06-28] MEDS: ASCORBIC ACID 500 MG TABLET PO SCH (11:09)
[2023-06-28] MEDS: CHOLECALCIFEROL (VITAMIN D3) 2,000 UNIT TABLET PO SCH (11:09)
[2023-06-28] MEDS: LOSARTAN POTASSIUM 50 MG TABLET (COZAAR) PO SCH (11:10)
[2023-06-28] MEDS: CYANOCOBALAMIN (VITAMIN B-12) 1,000 MCG TABLET PO SCH (11:10)
[2023-06-28 11:25] VITALS: BP_SYST 119; PULSE 83; RESP 16; TEMP 98.7; O2SAT 96
[2023-06-28 15:21] VITALS: BP_SYST 131; PULSE 84; RESP 15; TEMP 97.2; O2SAT 96
[2023-06-28 19:55] VITALS: BP_SYST 124; PULSE 89; RESP 17; TEMP 98.8; O2SAT 97
[2023-06-28] MEDS: GABAPENTIN 300 MG CAPSULE PO SCH (21:51)
[2023-06-29 01:05] VITALS: BP_SYST 118; PULSE 91; RESP 20; TEMP 98.2; O2SAT 100
[2023-06-29] MEDS: LEVOTHYROXINE SODIUM 0.025 MG TABLET PO SCH (06:48)
[2023-06-29 08:00] VITALS: BP_SYST 128; PULSE 89; RESP 17; TEMP 97.2; O2SAT 97
[2023-06-29] MEDS: CHOLECALCIFEROL (VITAMIN D3) 2,000 UNIT TABLET PO SCH (09:00)
[2023-06-29] MEDS: ASCORBIC ACID 500 MG TABLET PO SCH (09:00)
[2023-06-29] MEDS: CYANOCOBALAMIN (VITAMIN B-12) 1,000 MCG TABLET PO SCH (09:00)
[2023-06-29] MEDS: OMEGA-3/DHA/EPA/FISH OIL 1 GM CAPSULE PO SCH (09:00)
[2023-06-29] MEDS: MULTIVITAMINS TAB 1 TABLET PO SCH (09:00)
[2023-06-29] MEDS: FERROUS SULFATE 325 MG TABLET.DR PO SCH ×2 (09:00→20:49)
[2023-06-29] MEDS: LOSARTAN POTASSIUM 50 MG TABLET (COZAAR) PO SCH (09:02)
[2023-06-29] MEDS: levoFLOXacin 250 MG TABLET PO SCH (11:25)
[2023-06-29 11:28] VITALS: BP_SYST 131; PULSE 96; RESP 16; TEMP 97.8; O2SAT 97
[2023-06-29] MEDS ORDERED: D5W 1,000 ML IV PRN (11:30)
[2023-06-29] MEDS ORDERED: DEXTROSE 50% JECT 50 ML DISP.SYRIN IVP PRN (11:30)
[2023-06-29] MEDS ORDERED: GLUCOSE (DEXTROSE) ORAL GEL -Adults PO PRN (11:30)
[2023-06-29] MEDS ORDERED: INSULIN REGULAR, HUMAN 100 UNITS/ML, 3 ML VIAL SUBCUT SCH (11:30)
[2023-06-29 11:37] VITALS: O2SAT 97
[2023-06-29] MEDS: INSULIN REGULAR, HUMAN 100 UNITS/ML, 3 ML VIAL (humuLIN R) SUBCUT PRN ×3 (11:58→20:49)
[2023-06-29 15:04] VITALS: BP_SYST 143; PULSE 99; RESP 16; TEMP 97.4; O2SAT 93
[2023-06-29] MEDS: D5/0.45 NS 1,000 ML IV SCH (17:17)
[2023-06-29 20:00] VITALS: BP_SYST 138; PULSE 89; RESP 16; TEMP 97.5; O2SAT 100; O2SAT 97
[2023-06-29] MEDS: GABAPENTIN 300 MG CAPSULE PO SCH (20:49)
[2023-06-30 01:00] VITALS: BP_SYST 119; PULSE 82; RESP 19; TEMP 99; O2SAT 98
[2023-06-30 04:19] LABS: BASOPHILS % (AUTO) 0.2 % (0.0-2.0); EOSINOPHILS # (AUTO) 0.3 K/uL (0.0-0.4); EOSINOPHILS % (AUTO) 3.3 % (0.0-4.0); HEMATOCRIT 28.5 % (36-48); LYMPHOCYTES # (AUTO) 2.1 K/uL (1.0-5.5); LYMPHOCYTES % (AUTO) 26.5 % (20.5-51.5); MEAN CORPUSCULAR HEMOGLOBIN 27 pg (27-31); MEAN CORPUSCULAR HGB CONC 32 % (32-36); MEAN CORPUSCULAR VOLUME 86 fL (79.0-98.0); MONOCYTES # (AUTO) 0.4 K/uL (0.0-1.0); MONOCYTES % (AUTO) 4.9 % (1.7-9.3); NEUTROPHILS # (AUTO) 5.1 K/uL (1.8-7.7); NEUTROPHILS % (AUTO) 65.1 % (40.0-70.0); PLATELET COUNT (AUTO) 213 K/uL (130-430); RED BLOOD CELL COUNT(AUTO) 3.32 MIL/uL (4.2-6.2); RED CELL DISTRIBUTION WIDTH 15.3 % (9.0-15.0); WHITE BLOOD COUNT (AUTO) 7.8 K/uL (4.8-10.8)
[2023-06-30 04:30] LABS: ANION GAP 10 (5-15); CALCIUM 8.4 mg/dL (8.4-11.0); CARBON DIOXIDE 25 mmol/L (23-29); CHLORIDE 104 mmol/L (98-107); CREATININE 0.95 mg/dL (0.55-1.30); GLUCOSE 211 mg/dL (74-106); POTASSIUM 4.3 mmol/L (3.5-5.1); SODIUM SERUM 139 mmol/L (136-145); UREA NITROGEN, BLOOD 11 mg/dL (8-21)
[2023-06-30] MEDS: INSULIN REGULAR, HUMAN 100 UNITS/ML, 3 ML VIAL (humuLIN R) SUBCUT PRN ×3 (06:13→16:44)
[2023-06-30] MEDS: LEVOTHYROXINE SODIUM 0.025 MG TABLET PO SCH (06:13)
[2023-06-30] MEDS: CYANOCOBALAMIN (VITAMIN B-12) 1,000 MCG TABLET PO SCH (08:44)
[2023-06-30] MEDS: MULTIVITAMINS TAB 1 TABLET PO SCH (08:44)
[2023-06-30] MEDS: FERROUS SULFATE 325 MG TABLET.DR PO SCH (08:44)
[2023-06-30] MEDS: CHOLECALCIFEROL (VITAMIN D3) 2,000 UNIT TABLET PO SCH (08:44)
[2023-06-30] MEDS: ASCORBIC ACID 500 MG TABLET PO SCH (08:45)
[2023-06-30] MEDS: LOSARTAN POTASSIUM 50 MG TABLET (COZAAR) PO SCH (08:45)
[2023-06-30] MEDS: OMEGA-3/DHA/EPA/FISH OIL 1 GM CAPSULE PO SCH (08:45)
[2023-06-30 09:56] VITALS: O2SAT 96
[2023-06-30] MEDS: levoFLOXacin 250 MG TABLET PO SCH (10:35)
[2023-06-30 11:19] VITALS: BP_SYST 133; PULSE 99; RESP 16; TEMP 97.7; O2SAT 93
[2023-06-30] MEDS: D5/0.45 NS 1,000 ML IV SCH (12:19)
[2023-06-30 15:23] VITALS: BP_SYST 139; PULSE 106; RESP 16; TEMP 97.4; O2SAT 96
[2023-06-30 16:46] VITALS: BP_SYST 132; PULSE 96; RESP 16; TEMP 97.2; O2SAT 96
[2023-07-03] MEDS ORDERED: ALENDRONATE SODIUM 35 MG TABLET PO SCH (06:00)
== END 2023-06-30 19:59 | DRG 919 ==
LOC: SED 12:39 → SMU 17:15
PROVIDERS: ADMIT Internal Medicine; ATTEND Internal Medicine
DX: T85.698A Other mechanical complication of other specified internal prosthetic devices, implants and grafts, initial encounter (principal); K65.0 Generalized (acute) peritonitis; N17.0 Acute kidney failure with tubular necrosis; N39.0 Urinary tract infection, site not specified; Y83.8 Other surgical procedures as the cause of abnormal reaction of the patient, or of later complication, without mention of misadventure at the time of the procedure; E03.9 Hypothyroidism, unspecified; E66.9 Obesity, unspecified; M81.0 Age-related osteoporosis without current pathological fracture; E11.42 Type 2 diabetes mellitus with diabetic polyneuropathy; F03.90 Unspecified dementia, unspecified severity, without behavioral disturbance, psychotic disturbance, mood disturbance, and anxiety; I10 Essential (primary) hypertension; F20.9 Schizophrenia, unspecified; Z53.31 Laparoscopic surgical procedure converted to open procedure; Z79.899 Other long term (current) drug therapy; Z79.4 Long term (current) use of insulin; Y92.89 Other specified places as the place of occurrence of the external cause; Z68.31 Body mass index [BMI] 31.0-31.9, adult
CPT/HCPCS: 36415; 71045; 76376; 78226; 80048; 80053; 81000; 81001; 81015; 82009; 82150; 82962; 83605; 83690; 85025; 85610-TC; 85730-TC; 87040; 87070-TC; 87081; 87086; 93005; 99285; A9537